=== PATIENT | female | born 1925 | race Caucasian/White ===

== ENCOUNTER 2017-04-23 16:48 | Emergency (ER) | payer MEDICARE, BC ==
[2017-04-23] MEDS ORDERED: Sodium Chloride 0.9% 10 ML Syringe FLUSH PRN (16:53)
[2017-04-23] MEDS ORDERED: Famotidine 20 MG/2 ML SDV IVPUSH ONE (16:53)
--- NOTE | 2017-04-23 16:53 | EDM.PDOC ---
ED HPI GENERAL MEDICAL PROBLEM - General Chief Complaint: Cardiovascular Problem Stated Complaint: SOB, chest tightness, edema Time Seen by Provider: 04/23/17 16:50 Source of Information: Reports: Patient, Family (Daughter), Senior Living Records (Limited), Old Records ([facility] EMR. No paper hospital chart available.) History Limitations: Reports: No Limitations - History of Present Illness INITIAL COMMENTS - FREE TEXT/NARRATIVE: The patient was brought to the emergency room via transport vehicle from [facility] in [place] for evaluation of progressive dyspnea, dependent edema, refractory CHF to increased Lasix therapy during the last week. Patient's dose of Lasix has been progressively increased during the last week with a 10 pound weight gain over the last few days. At about 16:10 hours this afternoon the patient began experiencing 3/10 superior retrosternal chest pressure with radiation to the neck region bilaterally with improvement with application of O2 therapy prior to transfer to this facility. She has also been experiencing some moderate dyspnea with activity and some dizziness, however overall activity level is low. The patient denies any heart flutter, orthostasis , orthopnea, diaphoresis, paresthesias, or any other anginal-type symptoms. No recent history of abdominal pain, heartburn, nausea, diarrhea, melena, gross hematochezia, or any food intolerance, including fatty foods, etc.. The patient also denies any recent fever, cough, wheezing, dyspnea, etc.. No history of recent headaches, visual changes, diplopia, change in mental status, or other change in neurological status. Onset: Gradual Duration: Week(s): (As above), Getting Worse Location: Reports: Neck, Chest, Radiates to (As above). Denies: Head, Face, Abdomen, Back, Upper Extremity, Left, Upper Extremity, Right Quality: Reports: Pressure Severity: Mild Improves with: Reports: Rest, Other (Oxygen) Worsens with: Reports: Movement (Activity) Context: Reports: Other (As above) Associated Symptoms: Reports: Chest Pain, Shortness of Breath. Denies: Confusion, Cough, Diaphoresis, Fever/Chills, Headaches, Loss of Appetite, Malaise, Nausea/Vomiting, Seizure, Syncope, Weakness Treatments INSTRUCTIONAL SERVICES SPECIALIST: Reports: Oxygen Middle Chest Pain Score (Numeric/FACES): 3 - Related Data Allergies Allergy/AdvReac Type Severity Reaction Status Date / Time atorvastatin [From Lipitor] Allergy Cannot Verified 04/23/17 16:51 Remember rosuvastatin [From Crestor] Allergy Cannot Verified 04/23/17 16:51 Remember Home Meds: Home Meds Acetaminophen [Tylenol] 650 mg PO DAILY PRN 04/23/17 [History] Acetaminophen [Tylenol] 650 mg PO TID 04/23/17 [History] Cholecalciferol (Vitamin D3) [Vitamin D3] 2,000 unit PO DAILY 04/23/17 [History] Cyanocobalamin (Vitamin B-12) [B-12] 1,000 mg PO DAILY 04/23/17 [History] Diltiazem HCl [Diltiazem 24Hr Cd] 120 mg PO DAILY 04/23/17 [History] Furosemide [Lasix] 80 mg PO DAILY 04/23/17 [History] Ibuprofen 200 mg PO BID PRN 04/23/17 [History] Insulin Aspart [NovoLOG] 12 units SUBCUT TIDAC 04/23/17 [History] Insulin Detemir [Levemir Flextouch] 35 unit SUBCUT DAILY 04/23/17 [History] Levothyroxine Sodium [Synthroid] 75 mcg PO DAILY 04/23/17 [History] Losartan Potassium [Cozaar] 100 mg PO QAM 04/23/17 [History] Multivitamin [Multiple Vitamins] 1 tab PO DAILY 04/23/17 [History] Pravastatin [Pravachol] 5 mg PO BEDTIME 04/23/17 [History] Warfarin [Coumadin] 2.5 mg PO DAILY 04/23/17 [History] guaiFENesin [Tussin] 10 ml PO Q4H PRN 04/23/17 [History] Past Medical History HEENT History: Reports: Hard of Hearing, Impaired Vision, Macular Degeneration, Retinal Detachment, Other (See Below) Other HEENT History: Patient with 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 Endocrine/Metabolic History: Reports: Diabetes, Type II, Hypothyroidism, IDDM, Osteoporosis, Other (See Below) Other Endocrine/Metabolic History: Hyponatremia secondary to chronic CHF Hematologic History: Reports: Anemia, B12 Deficiency - Past Surgical History GI Surgical History: Reports: Appendectomy, Cholecystectomy Female Surgical History: Reports: Breast Biopsy Social & Family History - Family History Cardiac: Reports: Arrhythmia, CAD, Hypertension, [place], Pacemaker, Other (See Below ) Other Cardiac Family History: Sister with pacemaker and hypertension, father with fatal [place] Oncologic: Reports: Bone, Other (See Below) Other Oncologic Family History: mother with unknown type of bone cancer - Tobacco Use Smoking Status *Q: Never Smoker Smoking Cessation Information Provided To Patient: No Second Hand Smoke Exposure: No Second Hand Smoke Education Provided: No - Living Situation & Occupation Living situation: Reports: (3 children), Extended Care Facility ([facility] in [place]) ED ROS GENERAL - Review of Systems Review Of Systems: ROS reveals no pertinent complaints other than HPI. ED EXAM, GENERAL - Physical Exam Exam: See Below Exam Limited By: No Limitations General Appearance: Alert, WD/WN, No Apparent Distress Eye Exam: Bilateral Eye: EOMI, Normal Inspection, PERRL, Vision Changes ( Patient wears glasses. Legally blind bilaterally secondary to macular degeneration) Ears: Normal External Exam, Hearing Loss (Severe bilateral presbycusis with suboptimal bilateral hearing aide therapy) Nose: Normal Inspection, Normal Mucosa, No Blood Throat/Mouth: Normal Lips, Normal Gums, Normal Oropharynx, Normal Voice, No Airway Compromise. No: Normal Teeth (Partial dentures uppers and lowers), Dysphagia, Inflammation Head: Atraumatic, Normocephalic. No: Facial Swelling, Facial Tenderness, Sinus Tenderness Neck: Supple, Carotid Bruit (Bilateral carotid bruits versus transmitted heart sounds). No: Lymphadenopathy (L), Lymphadenopathy (R), Thyromegaly Respiratory/Chest: No Respiratory Distress, No Accessory Muscle Use, Chest Non- Tender, Rales (Mild bilateral basilar rales), Accessory Muscle Use. No: Rhonchi, Wheezing, Pleural Rub, Retractions Cardiovascular: No Edema (Dependent edema as below), No Gallop, No JVD, No Rub, Bradycardia (Moderate regular rhythm), Systolic Murmur (Mild 1/6 RICCARDO at the aortic and mitral valves). No: No Murmur, Gallop/S3, Gallop/S4 Peripheral Pulses: 2+: Radial (L), Radial (R), Dorsalis Pedis (L), Dorsalis Pedis (R) GI/Abdominal: Normal Bowel Sounds, Soft, Non-Tender, No Organomegaly, No Distention, No Abnormal Bruit, No Mass, Pelvis Stable, Other (Obese, mild ascites). No: Guarding (Female) Exam: Deferred Rectal (Female) Exam: Deferred Back Exam: Normal Inspection, Full Range of Motion. No: CVA Tenderness (L), CVA Tenderness (R), Muscle Spasm Extremities: Normal Range of Motion, Non-Tender, Normal Capillary Refill, Pedal Edema (+1 bilateral pedal/pretibial edema), Other (Bilateral MOIRA hose). No: Juana's Sign Neurological: Alert, Oriented, CN II-XII Intact, Normal Cognition, Normal Gait, Normal Reflexes (Negative Babinski's), No Motor/Sensory Deficits Psychiatric: Normal Affect, Normal Mood Skin Exam: Warm, Dry, Intact, Normal Color, No Rash. No: Diaphoretic, Wound/ Incision Lymphatic: No Adenopathy EKG INTERPRETATION EKG Date: 04/23/17 Time: 14:56 Rhythm: Other (Complete third degree AV block) Rate (Beats/Min): 45 [place]: Normal (Neutral) P-Wave: Enlarged (Diffuse biphasic with third-degree AV block) QRS: Wide (QRS interval of 0.10 seconds representing repolarization changes versus beginning incomplete right bundle branch block) ST-T: Normal (T-wave inversion in lead V1) QT: Normal CA/PQ Interval: Complete third degree AV block with extreme poor R-wave progression in the anterior leads and overall low voltage Comparison: NA - No Prior EKG EKG Interpretation Comments: 1. No acute ischemic changes 2. Complete third degree AV block with sinus bradycardia 3. REpolarization changes versus beginning incomplete right bundle branch block Course - Vital Signs Last Recorded V/S: Last Vital Signs Temp 36.1 C 04/23/17 16:53 Pulse 49 L 04/23/17 19:38 Resp 15 04/23/17 19:38 BP 164/47 H 04/23/17 19:38 Pulse Ox 100 04/23/17 19:38 Vital Signs - 24 hr 04/23/17 04/23/17 04/23/17 16:53 17:05 17:20 Temperature [ 36.1 C Temporal] Pulse, 45 L 47 L Peripheral [ Right Pulse Oximetry] Respiratory 17 17 16 Rate Blood Pressure Blood Pressure 184/59 H 173/49 H 173/49 H [Left Upper Arm ] O2 Sat by Pulse 100 100 100 Oximetry O2 Sat by Pulse 100 Oximetry [ Nasal Cannula] 04/23/17 04/23/17 04/23/17 17:35 17:51 18:01 Temperature [ Temporal] Pulse, 49 L 47 L Peripheral [ Right Pulse Oximetry] Respiratory 17 18 Rate Blood Pressure 172/101 H Blood Pressure 190/54 H 172/101 H [Left Upper Arm ] O2 Sat by Pulse 100 100 Oximetry O2 Sat by Pulse Oximetry [ Nasal Cannula] 04/23/17 04/23/17 04/23/17 18:10 18:46 19:00 Temperature [ Temporal] Pulse, 57 L 50 L 45 L Peripheral [ Right Pulse Oximetry] Respiratory 18 17 15 Rate Blood Pressure Blood Pressure 164/56 H 170/50 H 166/48 H [Left Upper Arm ] O2 Sat by Pulse 100 100 100 Oximetry O2 Sat by Pulse Oximetry [ Nasal Cannula] 04/23/17 04/23/17 04/23/17 19:12 19:14 19:25 Temperature [ Temporal] Pulse, 46 L 47 L Peripheral [ Right Pulse Oximetry] Respiratory 15 16 Rate Blood Pressure 174/52 H Blood Pressure 174/52 H 163/56 H [Left Upper Arm ] O2 Sat by Pulse 100 100 Oximetry O2 Sat by Pulse Oximetry [ Nasal Cannula] 04/23/17 19:38 Temperature [ Temporal] Pulse, 49 L Peripheral [ Right Pulse Oximetry] Respiratory 15 Rate Blood Pressure Blood Pressure 164/47 H [Left Upper Arm ] O2 Sat by Pulse 100 Oximetry O2 Sat by Pulse Oximetry [ Nasal Cannula] - Orders/Labs/Meds Orders: Active Orders 24 hr Category Date Time Status Cardiac Monitoring [RC] . DIRECTED Care 04/23/17 16:53 Active EKG Documentation Completion [RC] ASDIRECTED Care 04/23/17 16:53 Active Oxygen Therapy, ED [RC] CONTINUOUS Care 04/23/17 16:53 Active Peripheral IV Care [RC] . DIRECTED Care 04/23/17 16:53 Active Pulse Oximetry [RC] CONTINUOUS Care 04/23/17 16:53 Active Up With Assistance [RC] PFP Care 04/23/17 16:53 Active Vital Signs [RC] PFP Care 04/23/17 16:53 Active Nothing per Oral Now Diet [DIET] Diet 04/23/17 Breakfast Active Chest 1V Frontal [CR] Stat Exams 04/23/17 16:53 Taken Nitroglycerin [Nitrostat] Med 04/23/17 17:58 Stat 0.4 mg SL ONETIME STA Nitroglycerin [Nitrostat] Med 04/23/17 19:10 Stat 0.4 mg SL ONETIME STA Sodium Chloride 0.9% [Saline Flush] Med 04/23/17 16:53 Active 10 ml FLUSH ASDIRECTED PRN Obtain Past Medical Record [OM.PC] Urgent Oth 04/23/17 16:53 Active Peripheral IV Insertion Adult [OM.PC] Stat Oth 04/23/17 16:53 Ordered Resuscitation Status Routine Resus Stat 04/23/17 17:24 Ordered Medication Orders Nitroglycerin (Nitrostat) 0.4 mg SL ONETIME STA Stop: 04/24/17 17:59 Last Admin: 04/23/17 18:01 Dose: 0.4 mg Nitroglycerin (Nitrostat) 0.4 mg SL ONETIME STA Stop: 04/24/17 19:11 Last Admin: 04/23/17 19:14 Dose: 0.4 mg Sodium Chloride (Saline Flush) 10 ml FLUSH ASDIRECTED PRN PRN Reason: Keep Vein Open Last Admin: 04/23/17 17:31 Dose: 10 ml Labs: Laboratory Tests 04/23/17 04/23/17 04/23/17 Range/Units 17:00 17:00 17:00 WBC 6.0 (4.0-10.2) K/uL RBC 3.19 L (3.77-5.09) M/uL Hgb 9.8 L (11.7-15.5) g/dL Hct 29.6 L (34.0-46.0) % MCV 92.8 D (84.0-98.0) fL MCH 30.7 (28.2-33.3) pg MCHC 33.1 (31.7-36.0) g/dL RDW 13.2 (11.2-14.1) % Plt Count 267 D (150-350) K/uL Neut % (Auto) 73.3 (45.0-80.0) % Lymph % (Auto) 16.0 (10.0-50.0) % [place] % (Auto) 7.5 (2.0-14.0) % Eos % (Auto) 3.0 (0.0-5.0) % Baso % (Auto) 0.2 (0.0-2.0) % Neut # (Auto) 4.41 (1.40-7.00) K/uL Lymph # (Auto) 0.96 (0.50-3.50) K/uL [place] # (Auto) 0.45 (0.00-1.00) K/uL Eos # (Auto) 0.18 (0.00-0.50) K/uL Baso # (Auto) 0.01 (0.00-0.20) K/uL PT 20.7 H (9.8-11.7) SEC INR 1.9 APTT 36.0 H (23.5-30.0) SEC D-Dimer, Quantitative 359 (0-400) ng/mL Sodium (136-145) mmol/L Potassium (3.5-5.1) mmol/L Chloride (98-107) mmol/L Carbon Dioxide (21.0-32.0) mmol/L BUN (7-18) mg/dL Creatinine (0.51-1.17) mg/dL Est Cr Clr Drug Dosing Estimated GFR (MDRD) mL/min Glucose (74-106) mg/dL Lactic Acid (0.4-2.0) mmol/L Uric Acid (2.6-7.2) mg/dL Calcium (8.5-10.1) mg/dL Magnesium (1.8-2.4) mg/dL Total Bilirubin (0.2-1.0) mg/dL AST (15-37) U/L ALT (12-78) U/L Alkaline Phosphatase (46-116) IU/L Creatine Kinase (26-308) U/L Creatine Kinase Index (0.0-2.5) % CK-MB (CK-2) (0.00-3.60) ng/mL Troponin I (0.000-0.056) ng/mL [id number] Pept (0-125) pg/mL Total Protein (6.4-8.2) g/dL Albumin (3.4-5.0) g/dL TSH, Ultra Sensitive (0.358-3.740) mIU/mL 04/23/17 04/23/17 Range/Units 17:00 17:00 WBC (4.0-10.2) K/uL RBC (3.77-5.09) M/uL Hgb (11.7-15.5) g/dL Hct (34.0-46.0) % MCV (84.0-98.0) fL MCH (28.2-33.3) pg MCHC (31.7-36.0) g/dL RDW (11.2-14.1) % Plt Count (150-350) K/uL Neut % (Auto) (45.0-80.0) % Lymph % (Auto) (10.0-50.0) % [place] % (Auto) (2.0-14.0) % Eos % (Auto) (0.0-5.0) % Baso % (Auto) (0.0-2.0) % Neut # (Auto) (1.40-7.00) K/uL Lymph # (Auto) (0.50-3.50) K/uL [place] # (Auto) (0.00-1.00) K/uL Eos # (Auto) (0.00-0.50) K/uL Baso # (Auto) (0.00-0.20) K/uL PT (9.8-11.7) SEC INR APTT (23.5-30.0) SEC D-Dimer, Quantitative (0-400) ng/mL Sodium 131 L (136-145) mmol/L Potassium 4.3 (3.5-5.1) mmol/L Chloride 98 (98-107) mmol/L Carbon Dioxide 23.3 (21.0-32.0) mmol/L BUN 29 H (7-18) mg/dL Creatinine 1.29 H (0.51-1.17) mg/dL Est Cr Clr Drug Dosing TNP Estimated GFR (MDRD) 39 mL/min Glucose 107 H (74-106) mg/dL Lactic Acid 1.8 (0.4-2.0) mmol/L Uric Acid 7.1 (2.6-7.2) mg/dL Calcium 8.9 (8.5-10.1) mg/dL Magnesium 2.0 (1.8-2.4) mg/dL Total Bilirubin 0.4 (0.2-1.0) mg/dL AST 22 (15-37) U/L ALT 26 (12-78) U/L Alkaline Phosphatase 94 (46-116) IU/L Creatine Kinase 80 (26-308) U/L Creatine Kinase Index 1.5 (0.0-2.5) % CK-MB (CK-2) 1.20 (0.00-3.60) ng/mL Troponin I 0.032 (0.000-0.056) ng/mL [id number] Pept 4382 H (0-125) pg/mL Total Protein 7.8 (6.4-8.2) g/dL Albumin 3.7 (3.4-5.0) g/dL TSH, Ultra Sensitive 13.687 H (0.358-3.740) mIU/mL Meds: Medications Generic Name Dose Route Start Last Admin Trade Name Freq PRN Reason Stop Dose Admin Nitroglycerin 0.4 mg 04/23/17 17:58 04/23/17 18:01 Nitrostat SL 04/24/17 17:59 0.4 mg ONETIME STA Administration Nitroglycerin 0.4 mg 04/23/17 19:10 04/23/17 19:14 Nitrostat SL 04/24/17 19:11 0.4 mg ONETIME STA Administration Sodium Chloride 10 ml 04/23/17 16:53 04/23/17 17:31 Saline Flush FLUSH 10 ml ASDIRECTED PRN Administration Keep Vein Open Discontinued Medications Generic Name Dose Route Start Last Admin Trade Name Freq PRN Reason Stop Dose Admin Famotidine 40 mg 04/23/17 16:53 04/23/17 17:30 Pepcid IVPUSH 04/23/17 16:54 40 mg ONETIME ONE Administration Furosemide 60 mg 04/23/17 17:23 04/23/17 17:30 Lasix IVPUSH 04/23/17 17:24 60 mg NOW ONE Administration - Radiology Interpretation Free Text/Narrative:: compliance monitor shows moderate sinus bradycardia with average heart rate in the mid-40s with occasional mild sinus bradycardia in the low 50s. No other ectopy or arrhythmia although evidence of probable third degree AV block by both EKG and monitor Chest x-ray, portable, shows evidence of moderate COPD and pulmonary fibrotic changes with additional moderate cardiomegaly and CHF, including Amol B lines and bilateral pleural effusions right greater than left. Left lower lobe atelectasis also noted but no direct evidence of pulmonary infiltrates, pneumothorax, etc. Departure - Departure Time of Disposition: 20:05 Disposition: DC/Tfer to [facility] Reason for Transfer *Q: Other (Pacemaker/cardiology consultation indicated) Condition: Fair Clinical Impression: Acute coronary syndrome, Third degree AV block, IDDM (insulin dependent diabetes mellitus) CHF (congestive heart failure) Qualifiers: Congestive heart failure type: unspecified congestive heart failure type Congestive heart failure chronicity: acute on chronic Qualified Code(s): I50.9 - Heart failure, unspecified Hypertension Qualifiers: Hypertension type: essential hypertension Qualified Code(s): I10 - Essential ( primary) hypertension Hyperlipidemia Qualifiers: Hyperlipidemia type: unspecified Qualified Code(s): E78.5 - Hyperlipidemia, unspecified Osteoarthritis Qualifiers: Osteoarthritis location: multiple joints Osteoarthritis type: primary Qualified Code(s): M15.0 - Primary generalized (osteo)arthritis Anemia Qualifiers: Anemia type: B12 deficiency Vitamin B12 deficiency anemia type: unspecified B12 deficiency Qualified Code(s): D51.9 - Vitamin B12 deficiency anemia, unspecified COPD (chronic obstructive pulmonary disease) Qualifiers: COPD type: emphysema Emphysema type: panlobular Qualified Code(s): J43.1 - Panlobular emphysema Hypothyroidism Qualifiers: Hypothyroidism type: acquired Qualified Code(s): E03.9 - Hypothyroidism, unspecified CVA (cerebral vascular accident) Qualifiers: CVA mechanism: occlusion Precerebral and cerebral artery: posterior cerebral artery Laterality of affected vessel: unspecified Qualified Code(s): I63.539 - Cerebral infarction due to unspecified occlusion or stenosis of unspecified posterior cerebral artery Referrals: Tayla Torrez PA [Primary Care Provider] - Forms: ED Department Discharge, Interfacility Transfer EMTALA - Problem List & Annotations (1) Third degree AV block SNOMED Code(s): 24150629 Code(s): I44.2 - ATRIOVENTRICULAR BLOCK, COMPLETE Status: Acute Priority : High Current Visit: Yes Onset Date: 04/23/17 Annotation/Comment:: Evidence of third degree AV block with symptomatic bradycardia and CHF based on today's evaluation. Note previous history of atrial flutter, although this does not appear to be present today. The patient does request to be a no code, however she does wish to have a pacemaker for her symptoms and comfort. Initial telephone consultation at 17:45 hours with [facility] with EKG and rhythm strips faxed to that facility at that time. Subsequent returned call and telephone consultation at 18:[address] Hill, superintendent fish hatchery at [facility], who does agree to accept the patient for consultation through the hospitalist. Subsequent telephone consultation at 18: 10 and 18:[address] Hill, hospitalist at [facility], who does accept the patient for direct admission. No further treatment recommendations given by either provider. Ambulance transfer with vp genetic accompaniment, however some delay in patient transfer secondary to ambulance availability without sequelae (2) Acute coronary syndrome SNOMED Code(s): 974279762 Code(s): I24.9 - ACUTE ISCHEMIC HEART DISEASE, UNSPECIFIED Status: Acute Priority: High Current Visit: Yes Onset Date: 04/23/17 Annotation/Comment: : Chest pain protocol initiated in the emergency room upon patient's arrival to this facility. Note that secondary to bradycardia beta glory therapy was not given. Also note that she went his currently on Coumadin with mildly subtherapeutic INR of 1.9. Therefore ASA and Brilinta were not given on arrival. Cardiology consultation as above. (3) CHF (congestive heart failure) SNOMED Code(s): 60869086 Code(s): I50.9 - HEART FAILURE, UNSPECIFIED Status: Acute Priority: High Current Visit: Yes Annotation/Comment:: Progressive CHF during the last week refractory to increasing oral Lasix therapy. IV Lasix given in the emergency room today with continued IV diuresis recommended, although this should be conducted with caution secondary to her history of diabetic nephropathy/renal insufficiency. Patient would benefit from a pacemaker both secondary to her third degree AV block as above and cardiac augmentation of her CHF. Note hyponatremia chronic in nature secondary to her CHF Qualifiers: Congestive heart failure type: unspecified congestive heart failure type Congestive heart failure chronicity: acute on chronic Qualified Code(s): I50.9 - Heart failure, unspecified (4) Hyperlipidemia SNOMED Code(s): 13454995 Code(s): E78.5 - HYPERLIPIDEMIA, UNSPECIFIED Status: Chronic Priority: Medium Current Visit: Yes Annotation/Comment:: Currently under therapy Qualifiers: Hyperlipidemia type: unspecified Qualified Code(s): E78.5 - Hyperlipidemia , unspecified (5) Hypertension SNOMED Code(s): 39568446 Code(s): I10 - ESSENTIAL (PRIMARY) HYPERTENSION Status: Chronic Priority : High Current Visit: Yes Annotation/Comment:: Blood pressures are somewhat elevated in the emergency room with sublingual nitroglycerin tablets given for chest pain and also for blood pressure control. Improved blood pressures prior to transfer with no neurological deficits, etc. 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 Status: Chronic Priority: Medium Current Visit: Yes Annotation/Comment:: Stable by patient history with current insulin therapy and known diabetic nephropathy (7) Osteoarthritis SNOMED Code(s): 295846551 Code(s): M19.90 - UNSPECIFIED OSTEOARTHRITIS, UNSPECIFIED SITE Status: Chronic Priority: Medium Current Visit: Yes Annotation/Comment:: Stable by patient history Qualifiers: Osteoarthritis location: multiple joints Osteoarthritis type: primary Qualified Code(s): M15.0 - Primary generalized (osteo)arthritis (8) Anemia SNOMED Code(s): 022677811 Code(s): D64.9 - ANEMIA, UNSPECIFIED Status: Chronic Priority: Medium Current Visit: Yes Annotation/Comment:: Moderate anemia with history of vitamin B-12 deficiency, however no history of abdominal pain, GI bleed, etc. Qualifiers: Anemia type: B12 deficiency Vitamin B12 deficiency anemia type: unspecified B12 deficiency Qualified Code(s): D51.9 - Vitamin B12 deficiency anemia, unspecified (9) COPD (chronic obstructive pulmonary disease) SNOMED Code(s): 88383386 Code(s): J44.9 - CHRONIC OBSTRUCTIVE PULMONARY DISEASE, UNSPECIFIED Status : Chronic Priority: Medium Current Visit: Yes Annotation/Comment:: COPD by chest x-ray with no recent fever or bronchitic type symptoms Qualifiers: COPD type: emphysema Emphysema type: panlobular Qualified Code(s): J43.1 - Panlobular emphysema (10) Hypothyroidism SNOMED Code(s): 58820774 Code(s): E03.9 - HYPOTHYROIDISM, UNSPECIFIED Status: Chronic Priority: Medium Current Visit: Yes Annotation/Comment:: TSH significantly elevated today despite current Synthroid therapy. Likely some malabsorption recently secondary to her CHF. Continue close observation by accepting providers and her regular providers Qualifiers: Hypothyroidism type: acquired Qualified Code(s): E03.9 - Hypothyroidism, unspecified (11) CVA (cerebral vascular accident) SNOMED Code(s): 266589185 Code(s): I63.9 - CEREBRAL INFARCTION, UNSPECIFIED Status: Acute Priority : Medium Current Visit: Yes Onset Date: 07/05/15 Annotation/Comment:: Distant CVA as above with no recent change in her neurological status, history of headaches, etc. Qualifiers: CVA mechanism: occlusion Precerebral and cerebral artery: posterior cerebral artery Laterality of affected vessel: unspecified Qualified Code(s) : I63.539 - Cerebral infarction due to unspecified occlusion or stenosis of unspecified posterior cerebral artery - Problem List Review Problem List Initiated/Reviewed/Updated: Yes - My Orders Last 24 Hours: My Active Orders 04/23/17 16:53 Cardiac Monitoring [RC] . DIRECTED EKG Documentation Completion [RC] ASDIRECTED Oxygen Therapy, ED [RC] CONTINUOUS Peripheral IV Care [RC] . DIRECTED Pulse Oximetry [RC] CONTINUOUS Up With Assistance [RC] PFP Vital Signs [RC] PFP Chest 1V Frontal [CR] Stat Sodium Chloride 0.9% [Saline Flush] 10 ml FLUSH ASDIRECTED PRN Obtain Past Medical Record [OM.PC] Urgent Peripheral IV Insertion Adult [OM.PC] Stat 04/23/17 17:24 Resuscitation Status Routine 04/23/17 17:58 Nitroglycerin [Nitrostat] 0.4 mg SL ONETIME STA 04/23/17 19:10 Nitroglycerin [Nitrostat] 0.4 mg SL ONETIME STA 04/23/17 Breakfast Nothing per Oral Now Diet [DIET] - Assessment/Plan Last 24 Hours: My Active Orders 04/23/17 16:53 Cardiac Monitoring [RC] . DIRECTED EKG Documentation Completion [RC] ASDIRECTED Oxygen Therapy, ED [RC] CONTINUOUS Peripheral IV Care [RC] . DIRECTED Pulse Oximetry [RC] CONTINUOUS Up With Assistance [RC] PFP Vital Signs [RC] PFP Chest 1V Frontal [CR] Stat Sodium Chloride 0.9% [Saline Flush] 10 ml FLUSH ASDIRECTED PRN Obtain Past Medical Record [OM.PC] Urgent Peripheral IV Insertion Adult [OM.PC] Stat 04/23/17 17:24 Resuscitation Status Routine 04/23/17 17:58 Nitroglycerin [Nitrostat] 0.4 mg SL ONETIME STA 04/23/17 19:10 Nitroglycerin [Nitrostat] 0.4 mg SL ONETIME STA 04/23/17 Breakfast Nothing per Oral Now Diet [DIET] Assessment:: As above. Plan: As above. Extensive precautions were given to the patient and her daughter, who are in agreement with the treatment plan. Ambulance transfer with vp genetic accompaniment
[2017-04-23] MEDS ORDERED: Furosemide 40 MG/4 ML VIAL IVPUSH ONE (17:23)
[2017-04-23 17:40] LABS: CHLORIDE,CL 98 mmol/L (98-107); SODIUM,NA 131 mmol/L (136-145)
[2017-04-23] MEDS ORDERED: Nitroglycerin 0.4 MG Tab.SL SL STA ×2 (17:58→19:10)
[2017-04-23 19:39] VITALS: BP 164/47
== END 2017-04-23 20:10 ==
LOC: LL.ED 16:48
DX: I63.539 Cerebral infarction due to unspecified occlusion or stenosis of unspecified posterior cerebral artery (principal); I24.9 Acute ischemic heart disease, unspecified; I44.2 Atrioventricular block, complete; E78.5 Hyperlipidemia, unspecified; M15.0 Primary generalized (osteo)arthritis; H54.7 Unspecified visual loss; I48.91 Unspecified atrial fibrillation; E78.00 Pure hypercholesterolemia, unspecified; I13.0 Hypertensive heart and chronic kidney disease with heart failure and stage 1 through stage 4 chronic kidney disease, or unspecified chronic kidney disease; I50.9 Heart failure, unspecified; N18.9 Chronic kidney disease, unspecified; E11.22 Type 2 diabetes mellitus with diabetic chronic kidney disease; E11.21 Type 2 diabetes mellitus with diabetic nephropathy; J44.9 Chronic obstructive pulmonary disease, unspecified; N18.3 Chronic kidney disease, stage 3 (moderate); E03.9 Hypothyroidism, unspecified; Z79.899 Other long term (current) drug therapy; Z79.01 Long term (current) use of anticoagulants; Z79.4 Long term (current) use of insulin; Z90.49 Acquired absence of other specified parts of digestive tract
CPT/HCPCS: 36415; 71010; 80053; 82550; 82553; 83605; 83735; 83880; 84443; 84484; 84550; 85025; 85379; 85610; 85730; 93005; 96374; 96375; 99285; A9270; J1940; J7050; S0028